=== PATIENT | female | born 2000 | race Caucasian/White ===

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

== ENCOUNTER 2018-07-02 09:34 | Outpatient (CLI) | END 2018-07-02 12:15 | disposition home or self-care (01) ==

== ENCOUNTER 2018-07-23 17:30 | Inpatient (IN) | END 2018-07-26 18:30 | disposition home or self-care (01) | DRG 807 ==

== ENCOUNTER 2018-12-15 00:28 | Emergency (ER) | payer MEDICAID ==
[~2018-12-15] VITALS: Ht 157.5 cm; Wt 66.3 kg
[~2018-12-15 00:28] MED LIST changes: -FERR325C PO; -FOL8 PO
[2018-12-15 00:32] VITALS: Ht 157.5 cm; Wt 66.3 kg
--- NOTE | 2018-12-15 04:42 | ERD ---
ER Documentation Chief Complaint Chief Complaint lower abd pain x 4 days HPI 18-year-old female presents with 4 days of abdominal pain. She states she is approximately 10 weeks . No vaginal bleeding. No nausea or vomiting. Has not taken medication for her symptoms. No urinary symptoms. ROS All systems reviewed and are negative except as per history of present illness. Medications Home Meds Reported Medications Multivit/Min/Fol Ac/Iron/Pren* ( S*) 1 Tab Tab, 1 TAB PO DAILY, TAB 02/07/17 Allergies Allergies: Coded Allergies: No Known Drug Allergies (Verified Allergy, Unknown, 07/23/18) PMhx/Soc Medical and Surgical Hx: pt denies Medical Hx, pt denies Surgical Hx Hx Alcohol Use: No Hx Substance Use: No Hx Tobacco Use: No Smoking Status: Never smoker FmHx Family History: No diabetes Physical Exam Vitals Vital Signs Date Temp Pulse Resp B/P (MAP) Pulse Ox O2 O2 Flow FiO2 Time Delivery Rate 12/15/18 98.5 60 16 92/54 (67) 100 00:32 Physical Exam INITIAL VITAL SIGNS: Reviewed by me GENERAL: Awake, alert and oriented x 4, well appearing, nontoxic, speaking in full sentences. No acute distress HEAD: Atraumatic NECK: Supple. No masses. Full range of motion. No meningismus. No midline tenderness. RESPIRATORY: Clear to auscultation bilaterally. Symmetric chest wall rise. No wheezing or rales. No accessory muscle use. CV: Regular rate and rhythm. No murmurs, rubs, or gallops. ABDOMEN: Soft, non-distended. Nontender. Negative [place]. Negative McBurneys point tenderness. No CVA tenderness bilaterally. No guarding. No rebound. : Deffered. Result Diagram: 12/15/18 0231 Results 24 hrs Laboratory Tests Test 12/15/18 02:31 White Blood Count 10.6 10^3/ul Red Blood Count 4.56 10^6/ul Hemoglobin 11.5 g/dl Hematocrit 35.6 % Mean Corpuscular Volume 78.1 fl Mean Corpuscular Hemoglobin 25.2 pg Mean Corpuscular Hemoglobin Concent 32.3 g/dl Red Cell Distribution Width 13.8 % Platelet Count 276 10^3/UL Mean Platelet Volume 9.7 fl Immature Granulocytes % 0.500 % Neutrophils % 77.8 % Lymphocytes % 15.3 % Monocytes % 5.3 % Eosinophils % 0.9 % Basophils % 0.2 % Nucleated Red Blood Cells % 0.0 /100WBC Immature Granulocytes # 0.050 10^3/ul Neutrophils # 8.3 10^3/ul Lymphocytes # 1.6 10^3/ul Monocytes # 0.6 10^3/ul Eosinophils # 0.1 10^3/ul Basophils # 0.0 10^3/ul Nucleated Red Blood Cells # 0.0 10^3/ul Urine Color YELLOW Urine Clarity SLIGHTLY CLOUDY Urine pH 5.0 Urine Specific [place] 1.032 Urine Ketones NEGATIVE mg/dL Urine Nitrite NEGATIVE mg/dL Urine Bilirubin NEGATIVE mg/dL Urine Urobilinogen 1+ mg/dL Urine Leukocyte Esterase NEGATIVE Madeleine/ul Urine Microscopic RBC 1 /HPF Urine Microscopic WBC 1 /HPF Urine Squamous Epithelial Cells FEW /HPF Urine Mucus MODERATE /HPF Urine Hemoglobin NEGATIVE mg/dL Urine Glucose NEGATIVE mg/dL Urine Total Protein NEGATIVE mg/dl Beta HCG, Quantitative 65177.0 mIU/ml Procedures/MDM Patient has abdominal pain during . Labs unremarkable. Ultrasound shows normal IUP. Patient counseled regarding my diagnostic impression and care plan. Prior to discharge all questions answered. Pt agrees with treatment plan and understands strict return precautions. Pt is instructed to follow up with primary care provider within 24-48 hours. Precautionary instructions provided including instructions to return to the ER if not improving or for any worsening or changing symptoms or concerns. Departure Diagnosis: Primary Impression: Pelvic pain affecting Condition: Stable Patient Instructions: Pelvic Pain, Unknown Cause Additional Instructions: Llame al doctor DANNIE y jammie sherrie AMELIA PARA DENTRO DE 1-2 CHAPMAN.Dgale a la secretaria que nosotros le instruimos hacer esta amelia.Avise o llame si combs condicin se empeora antes de la amelia. Regresa aqui si peor o no mejor. TAMMIE HOPKINS PA-C Dec 15, 2018 04:42
[2018-12-15 04:53] VITALS: BP 96/54; PULSE 97; RESP 18
== END 2018-12-15 04:56 | disposition home or self-care (01) ==
LOC: FTE 00:28
DX: O26.891 Other specified pregnancy related conditions, first trimester (principal); R10.2 Pelvic and perineal pain; Z3A.10 10 weeks gestation of pregnancy
CPT/HCPCS: 36415; 76801; 81001; 84702; 85025; 86900; 86901; Z7502; 81003

== ENCOUNTER 2019-02-19 22:09 | Outpatient (CLI) | payer MEDICAID ==
[~2019-02-19] VITALS: Ht 149.9 cm; Wt 67.8 kg
[2019-02-20 00:11] VITALS: BP 92/53; PULSE 69; RESP 16
--- NOTE | 2019-02-20 04:01 | TRIAGE ---
OB Triage Datetime Report Generated by CPN: 02/20/2019 04:01 Datetime: 02/19/2019 23:28 Vaginal Exam Membrane Status: Intact Datetime: 02/19/2019 22:30 Time of Arrival: 02/19/2019 21:56 EGA: 20.6 Arrived By: Ambulatory Arrived From: Home Chief Complaint: c/o constant lower abd and back pain since 1930 Movement: Present Contractions: Denies/Absent Rupture of Membranes: Denies Vaginal Bleeding: None Vaginal Discharge: Denies Recent Sexual Intercouse: Denies Abdominal Trauma: Not Applicable Patient Complaints: Back Pain Time Provider Notified: 02/19/2019 20:10 Provider Notified: Dr Lares Initial Plan: EFM,UA,CVL,TRE,OP HYDRATION
--- NOTE | 2019-03-06 17:36 | PN ---
Triage Information Date/Time Reason for visit: Abd/pelvic pain Weeks of Gestation 20 weeks and 6 days /Para G1 Diabetes: none Hypertention: none Objective Heart Rate: 130's Contractions: None Disposition: Discharge Assessment/Plan 18 years old 1 with single intrauterine at 20 weeks and 6 days complaining of lower abdominal pain. She states good movement. She denies nausea, vomiting, shortness of breath, chest pain, headache, visual changes, vaginal bleeding or LOF. -FHR: No sign of metabolic acidosis- Category I -Contractions: None -Symptoms and sign of labor, preeclampsia, kick count discussed with patient, she voiced understanding. All of her questions answered. -Patient was discharged home in stable condition with the appropriate discharge instructions provided. I would like patient to have close follow-up with her primary physician or outpatient clinic in 1-2 days or return to triage for worsening symptoms or any other urgent concerns. SIGIFREDO RIVERA Mar 06, 2019 17:36
== END 2019-02-20 00:39 | disposition home or self-care (01) ==
LOC: OBT 22:09 → L-D 22:10 → OBT 02-20 00:39
PROVIDERS: ATTEND Specialist
DX: O26.892 Other specified pregnancy related conditions, second trimester (principal); R10.2 Pelvic and perineal pain; Z3A.20 20 weeks gestation of pregnancy
CPT/HCPCS: 76815; 76817; 81001; Z7500; 81003; G0463